=== PATIENT | male | born 1985 | race Caucasian/White ===

== ENCOUNTER 2018-06-26 22:28 | Emergency (ER) | payer SELFPAY ==
[~2018-06-26] VITALS: Ht 193 cm; Wt 84.8 kg
[2018-06-26 22:50] VITALS: BP 125/81
--- NOTE | 2018-06-26 22:50 | NUR ---
ED Nurse Note: Pt ambulated to ED c/o laceration to left upper head, patient states that he ws at a bench and fell, denies any LOC, wound is about 3 inches in length and is open
--- NOTE | 2018-06-26 23:07 | Emergency Room Report ---
History of Present Illness General Chief Complaint: Laceration Source: Patient Present Illness HPI Patient was drinking earlier today. He fell off a wall and hit the side of his head. The wall was approximately 4 feet. Allegedly there is no loss of consciousness. There is quite a bit of bleeding and a gash in his scalp. Tetanus is up-to-date No major medical problems. No NVD. No other pain. 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 Reviewed Nursing Documentation: PMH: Agreed; PSxH: Agreed Nursing Documentation-PMH Past Medical History: No Stated History Review of Systems Constitutional: Denies: fever Eye: Denies: blurred vision Cardiovascular: Denies: chest pain Gastrointestinal: Denies: abdominal pain Musculoskeletal: Reports: see HPI Skin: Reports: see HPI Neurological: Reports: see HPI Hematologic/Lymphatic: Reports: see HPI Physical Exam Vital Signs Date Time Temp Pulse Resp B/P (MAP) Pulse Ox O2 Delivery O2 Flow Rate FiO2 06/26/18 22:39 98.2 96 14 125/81 95 Sp02 EP Interpretation: reviewed, normal General Appearance: well appearing, no apparent distress, GCS 15 Head: normocephalic, other - lac L parietal area Eyes: bilateral eye PERRL, bilateral eye EOMI, bilateral eye Scleral Injection ENT: hearing grossly normal, normal voice Neck: full range of motion, supple, no bony tend Respiratory: chest non-tender, lungs clear, normal breath sounds, no respiratory distress, speaking full sentences Cardiovascular #1: regular rate, rhythm Cardiovascular #2: 2+ radial (L) Gastrointestinal: normal inspection, normal bowel sounds, scaphoid Musculoskeletal: back normal, digits/nails normal, gait/station normal, normal range of motion Neurologic: alert, oriented x3, 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, motor strength/tone normal, DTRs symmetric, sensory intact, cerebellar normal, normal gait, speech normal Psychiatric: mood/affect normal Skin: no rash, laceration - L parietal area Procedures Laceration/Wound Repair Laceration/Wound Repair : Consent: Verbal Wound Location: head Wound's Depth, Shape: into muscle, linear Wound Length (cm): 5 Wound Explored: clean Irrigated w/ Saline (ccs): 20 Betadine Prep?: Yes Anesthesia: Lidocaine w/ Epi Volume Anesthetic (ccs): 4 Wound Debrided: none Wound Repaired With: sandie Patient Tolerated: Well Complications: None Medical Decision Making Diagnostic Impression: Primary Impression: Head injury Qualified Codes: S09.90XA - Unspecified injury of head, initial encounter Additional Impression: Scalp laceration Qualified Codes: S01.01XA - Laceration without foreign body of scalp, initial encounter ER Course Patient presents post fall with scalp laceration. His neurologic exam CT is not indicated at this time. The patient however does need to have laceration repair. Patient is reluctant to have any other studies performed at this time but agrees to laceration repair. Laceration is repaired with sandie. Patient tolerated well. Patient stable for outpatient observation and treatment. Treatment plan discussed with girlfriend, Last Vital Signs Date Time Temp Pulse Resp B/P (MAP) Pulse Ox O2 Delivery O2 Flow Rate FiO2 06/26/18 23:35 98.2 72 14 125/81 95 Status: improved Disposition: HOME, SELF-CARE Condition: Improved Scripts Bacitracin (Bacitracin) 28.4 Gm Oint...g. 1 APPLIC TOPIC BID, #20 GM Prov: Mirza Gonzalez MD 06/26/18 Mirza Gonzalez MD Jun 26, 2018 23:07
[2018-06-26] MEDS ORDERED: Lidocaine 1% 10mg/ml/Epi 0.005mg/ml 30ml vial INJ ONE (23:15)
[2018-06-26] MEDS ORDERED: Bacitracin Oint UD TOPIC ONE (23:15)
[2018-06-26 23:35] VITALS: BP 125/81
[2018-06-26] MEDS ORDERED: BACITRACIN15 GM TOPIC (23:35)
--- NOTE | 2018-06-26 23:35 | NUR ---
ED Nurse Note: Pt cleared DC by Dr. Gonzalez. Pt is A/Ox4, VSS, DC instruction and prescriptions given, pt verbalized understanding. ID wristband removed. All belongings given to pt. Pt ambulated out of ER with steady gait.
== END 2018-06-26 23:35 | disposition home or self-care (01) ==
LOC: EMR 23:20
DX: S01.01XA Laceration without foreign body of scalp, initial encounter (principal); W19.XXXA Unspecified fall, initial encounter; Y92.89 Other specified places as the place of occurrence of the external cause
CPT/HCPCS: 99283

== ENCOUNTER 2018-07-05 19:08 | Emergency (ER) | payer SELFPAY ==
[~2018-07-05] VITALS: Ht 190.5 cm; Wt 81.6 kg
[~2018-07-05 19:08] MED LIST: BACITRACIN15 GM TOPIC
[2018-07-05] MEDS ORDERED: NKM (19:14)
[2018-07-05 19:15] VITALS: BP 152/90
--- NOTE | 2018-07-05 19:18 | NUR ---
ED Nurse Note: patient ambulated to ED c/o suture removal to left head s/p laceration x 1week ago. no abnormalities noted. no active bleeding.
--- NOTE | 2018-07-05 19:28 | Emergency Room Report ---
History of Present Illness General Chief Complaint: Wound Recheck/Suture Removal Source: Patient Present Illness HPI 33-year-old male patient presents the ER requesting staple removal from left side of scalp. Reports was previously seen here 9 days ago after head trauma and having sandie placed. Reports has been healing well. States has been using topical antibiotic as instructed. Denies fever, chest pain, shortness of breath. Denies vomiting or vision changes. Reports wound healing well. Denies other aggravating or relieving factors. Allergies: Coded Allergies: No Known Allergies (Unverified , 06/26/18) Patient History Past Medical History: see triage record Reviewed Nursing Documentation: PMH: Agreed; PSxH: Agreed Nursing Documentation-PMH Past Medical History: No Stated History Review of Systems All Other Systems: negative except mentioned in HPI Physical Exam Vital Signs Date Time Temp Pulse Resp B/P (MAP) Pulse Ox O2 Delivery O2 Flow Rate FiO2 07/05/18 19:10 98.2 87 20 152/90 96 Room Air Sp02 EP Interpretation: reviewed, normal General Appearance: well appearing, no apparent distress, alert, GCS 15, non- toxic Head: normocephalic, atraumatic Eyes: bilateral eye normal inspection, bilateral eye PERRL ENT: hearing grossly normal, normal pharynx, no angioedema, normal voice, uvula midline, moist mucus membranes Neck: full range of motion, no bony tend Respiratory: lungs clear, normal breath sounds, no rhonchi, no respiratory distress, no accessory muscle use, no wheezing, speaking full sentences Musculoskeletal: back normal, digits/nails normal, gait/station normal, normal range of motion, non-tender Psychiatric: mood/affect normal Skin: other - Healing laceration on left side parietal scalp,, no drainage 11 sandie present, no surrounding erythema or edema, scabbing noted Medical Decision Making PA Attestation Dr. Gonzalez is my supervising Physician whom patient management has been discussed with. Diagnostic Impression: Primary Impression: Removal of sandie ER Course Pt. presents to the ED requesting wound check and staple removal. Ddx considered but are not limited to cellulitis, abscess, wound check, staple removal. Vital signs: are WNL, pt. is afebrile ER COURSE: Wound has no signs of infection., no erythema, edema, TTP, sensation is intact to light touch. Apply Neosporin to wound to reduce appearance of scar. ER precautions given. 11 sandie removed. Patient tolerated procedure well without complications. DISCHARGE: Patient instructed to continue with medications per initial ER provider instructions. At this time pt. is stable for d/c to home. Patient resting comfortatbly, in no acute distress, nontoxic appearing. Will provide printed patient care instructions and any necessary prescriptions. Care plan and follow up instructions have been discussed with the patient prior to discharge. Patient instructed to follow-up with primary care provider for further treatment and referral. Patient questions asked and answered. ER precautions given. Patient instructed to return to ER immediately for any new or worsening of symptoms including but not limited to fever, worsening of pain symptoms. - Please note that this Emergency Department Report was dictated using [employer] entry level technology software, occasionally this can lead to erroneous entry secondary to interpretation by the dictation equipment. Last Vital Signs Date Time Temp Pulse Resp B/P (MAP) Pulse Ox O2 Delivery O2 Flow Rate FiO2 07/05/18 19:15 98.2 63 20 152/90 96 Room Air Status: improved Disposition: HOME, SELF-CARE Condition: Stable Referrals: NOT CHOSEN IPA/MD,REFERRING (PCP) Patient Instructions: Wound Check Additional Instructions: Followup with primary care provider in 3 -5 days. Continue to apply topical antibiotic to help reduce appearance of scar. Take medications as directed. Patient questions asked and answered. ER precautions given, patient instructed to return to ER immediately for any new or worsening of symptoms. Harrison Jack Jul 05, 2018 19:28
[2018-07-05 19:30] VITALS: BP 150/87
--- NOTE | 2018-07-05 19:31 | NUR ---
ER DISCHARGE NOTE: Patient is cleared to be discharged per ERMD, pt is aox4, on room air, with stable vital signs. pt was given dc and prescription instructions, pt was able to verbalize understanding, pt id band and iv site removed without complications. pt is able to ambulate with steady gait. pt took all belongings.
== END 2018-07-05 19:32 | disposition home or self-care (01) ==
LOC: EMR 19:20
DX: Z48.02 Encounter for removal of sutures (principal); Z87.891 Personal history of nicotine dependence
CPT/HCPCS: 99281